=== PATIENT | female | born 1985 | race Caucasian/White ===

== ENCOUNTER 2024-06-11 14:59 | Emergency (ER) | payer OTHER ==
[~2024-06-11] VITALS: Ht 165.1 cm; Wt 82.0 kg
[2024-06-11 15:02] VITALS: O2SAT 99
[2024-06-11] MEDS ORDERED: LORAZEPAM 2MG/ML INJ IV ONE (15:30)
[2024-06-11] MEDS: LORAZEPAM 2MG/ML UD SYRINGE IV NR (16:17)
[2024-06-11 18:13] VITALS: BP 117/57; PULSE 98; RESP 17; TEMP 36.7; O2SAT 99
== END 2024-06-11 18:17 | disposition home or self-care (01) ==
LOC: ER 14:59
DX: S01.01XA Laceration without foreign body of scalp, initial encounter (principal); R56.9 Unspecified convulsions; W19.XXXA Unspecified fall, initial encounter; Y93.41 Activity, dancing; Y92.89 Other specified places as the place of occurrence of the external cause; Y99.8 Other external cause status
CPT/HCPCS: 70450; 12001; 96374; 99285; J2060; Z7610 ×2